=== PATIENT | female | born 1980 | race Caucasian/White ===

== ENCOUNTER 2017-03-12 13:17 | Outpatient (CLI) | payer BC ==
[2017-03-12 14:32] LABS: Hemoglobin 13.5 g/dL (12.0-16.0); Mean Corpuscular HGB CONC 33.9 g/dL (32.0-36.0); Mean Corpuscular Hemoglobin 31.4 pg (27.0-31.0); Mean Corpuscular Volume 92.6 fl (81.0-99.0); Mean Platelet Volume 7.3 fL (7.4-10.4); Platelet Count 163 thou/uL (130-400); Pregnancy Test - Urine (BHCG) Negative (Negative); Pregu Control Bar Appear? YES (CONTROL BAR); RBC Distribution Width 11.9 % (11.5-14.5); Red Blood Cell (RBC) Count 4.32 mill/uL (4.20-5.40); Specific Gravity 1.029 (1.002-1.036); White Blood Cell (WBC) Count 4.9 thou/uL (4.8-10.8)
[2017-03-12 14:33] LABS: Pregu Control Background? CLEAR/WHITE (CLR/WHITE)
== END 2017-03-12 13:18 | disposition home or self-care (01) ==
LOC: LABBT 13:17
PROVIDERS: ATTEND Student in an Organized Health Care Education/Training Program
DX: Z01.812 Encounter for preprocedural laboratory examination (principal); N92.1 Excessive and frequent menstruation with irregular cycle; R10.2 Pelvic and perineal pain; N83.209 Unspecified ovarian cyst, unspecified side; R93.8 Abnormal findings on diagnostic imaging of other specified body structures
CPT/HCPCS: 81025; 85027; 86850; 86900; 86901

== ENCOUNTER 2017-03-13 10:02 | Day surgery (SDC) | payer BC ==
[2017-03-12 13:48] VITALS: BMI 24.2
--- NOTE | 2017-03-13 00:55 | HP ---
DATE OF OPERATION: 03/13/2017 CHIEF COMPLAINT: Menometrorrhagia and pelvic pain. HISTORY OF PRESENT ILLNESS: This is a 36-year-old A2 with complaints of worsening menometrorrh agia over the last year. The patient has previously been on OCPs, however, has a diagnosis of methyl enetetrahydrofolate reductase homozygous and was instructed not to use estrogen containing cont rol. This was discovered after workup for her two miscarriages. She has also tried progesterone onl y methods and this did not improve the bleeding and cause significant pain. She reports her periods are every 2 weeks, lasting 7-9 days. She also reports increasing weight gain, distal extremity weakn ess, fatigue, and lower abdominal bloating. She has had blood work in the past with her PCP and with me, and that was negative. She also has persistent lower abdominal pain and is non-severe, however, this does bother her on a daily basis and with intercourse and this has been present for the last ye ar, has been slightly worsening since the patient is bleeding more frequently. CURRENT MEDICATIONS: Lotronex 1 mg p.o. daily. PAST MEDICAL HISTORY: IBS, MTHFR, homozygote, and headaches. GYNECOLOGIC HISTORY: Status post cryotherapy for abnormal Pap smears, normal Paps since no STDs. OBSTETRIC HISTORY: , vaginal deliveries, and 2 D and Cs for SAB. PAST SURGICAL HISTORY: Appendectomy, D and C x2. SOCIAL HISTORY: Negative x3. ALLERGIES: No known drug allergies. FAMILY HISTORY: Lung cancer in her father. REVIEW OF SYSTEMS: Negative except as noted in the HPI. PHYSICAL EXAMINATION: VITAL SIGNS: Blood pressure 110/70, pulse 91, respirations 18, weight 152. BMI is 23.8. GENERAL: In no acute distress. CARDIAC: Regular rate and rhythm. LUNGS: Clear to auscultation bilaterally. ABDOMEN: Soft, nontender, nondistended. EXTREMITIES: No edema, cyanosis, or clubbing. PELVIC: Deferred to OR. ASSESSMENT AND PLAN: This is a 36-year-old with worsening menometrorrhagia and pelvic pain. I n my office on 03/09/2017, she had an ultrasound that showed a uterus measuring 6.9 x 4.35 with an en dometrial thickness of 24 mm, possible bicornuate uterus. Right ovary was not visualized and left ov liam was visualized with a simple cyst measuring 2.0 x 1.63 cm with no free fluid. She was very tende r on the pelvic exam and secondary to finding of interval development of intrauterine endometrial thi ckening in the setting of recent menstrual period and hypermenorrhea. I have dispositioned the patie nt for further diagnosis for possible polyp or other mass with hysteroscopy, D and C while the patien t is under general anesthesia, she desired laparoscopy for evaluation of any pain causing disorders a nd possible cystectomy versus drainage of the persistent left ovarian cyst for the last year. Risks, benefits, and alternatives to surgery were discussed with the patient. She voiced understanding and wishes to proceed. She will follow up with me in 2 weeks' postoperative time.
[2017-03-13] MEDS ORDERED: CEFAZOLIN/Water 2 GM/20 ML SYRINGE ONE (10:29)
[2017-03-13] MEDS ORDERED: Promethazine HCl 25 MG/ML VIAL ONE (11:49)
[2017-03-13] MEDS ORDERED: HYDROmorphone 0.5 MG/0.5 ML SYRINGE ONE (11:49)
[2017-03-13] MEDS ORDERED: Fentanyl 100 MCG/2 ML VIAL ONE ×3 (11:49→14:39)
[2017-03-13] MEDS ORDERED: Bupivacaine/Epinephrine 0.25% 30 ML VIAL ONE (11:51)
[2017-03-13] MEDS ORDERED: Meperidine HCl/PF 25 MG/ML VIAL ONE (13:53)
[2017-03-13] MEDS ORDERED: Ketorolac Tromethamine 30 MG/ML VIAL ONE (14:22)
[2017-03-13] MEDS ORDERED: Lidocaine 1% PF 5 ML VIAL ONE (14:22)
[2017-03-13] MEDS ORDERED: Ondansetron HCl/PF 4 MG/2 ML Vial ONE ×2 (14:22→16:29)
[2017-03-13] MEDS ORDERED: Dexamethasone 20 MG/5 ML VIAL ONE (14:22)
[2017-03-13] MEDS ORDERED: PROPOFOL 200 MG/20 ML VIAL ONE (14:22)
[2017-03-13] MEDS ORDERED: Glycopyrrolate 0.2 MG/ML 5 ML SYRINGE ONE (14:22)
[2017-03-13] MEDS ORDERED: HYDROcodone/Acetaminophen 5/325 mg Tablet ONE ×2 (16:00→16:33)
--- NOTE | 2017-03-13 23:11 | OP ---
DATE OF OPERATION: 03/13/2017 PREOPERATIVE DIAGNOSES: 1. Pelvic pain. 2. Menometrorrhagia. 3. Endometrial thickening. POSTOPERATIVE DIAGNOSES: 1. Endometriosis. 2. Pelvic adhesive disease. 3. Endometrioma. 4. Hematosalpinx. 5. Menometrorrhagia. 6. Pelvic pain. PROCEDURES PERFORMED: Diagnostic laparoscopy, left salpingo-oophorectomy, lysis of adhesions, fulgur ation of endometriosis, hysteroscopy, dilation and curettage and Jaylyn endometrial ablation. ATTENDING SURGEON: Maame Kaplan M.D. [employer] SURGEON: None. ANESTHESIA: General endotracheal. ESTIMATED BLOOD LOSS: 15 mL. IV FLUIDS: 1100 crystalloid. URINE OUTPUT: 100 mL at the beginning of the case. COMPLICATIONS: None. PATHOLOGY: Endometrial curettings, left fallopian tube and ovary. DRAINS: None. FINDINGS: On intra-abdominal survey, the upper abdomen was within normal limits. The sigmoid colon appeared to have a significant amount of constipated fecal material as well as diverticulosis. There were sigmoid adhesions to the left fallopian tube and pelvic sidewall. The left fallopian tube and ovary were folded underneath the ovarian pedicle and adherent to the pelvic sidewall encasing no ovar nanda adhesions and blood was contained inside of these. The right ovary and fallopian tube were davian l appearing. There was scattered black and clear endometriotic implants on the left uterosacral liga ment, the posterior cul-de-sac and underlying the right ovarian fossa. On hysteroscopic exam, the ut erus sounded to 8 cm. The endometrium was very frayed and thickened and there were no discrete sabrina s and the fallopian tubal ostia were visualized bilaterally. Following Jaylyn ablation, there was a good chart at all uterine mercado. OPERATIVE TECHNIQUE: The patient was taken to the operating room where general anesthesia was obtain ed without difficulty. The patient was prepped and draped in a sterile fashion in dorsal lithotomy p osition. A speculum was placed in the vagina and a Hulka manipulator was placed into the uterus. Sp eculum was removed. The legs were placed in low lithotomy and attention was turned to the abdomen. A 5 mm infraumbilical incision was made and the Veress needle was passed into the abdomen noting an o pening pressure with 0 mmHg. Pneumoperitoneum was obtained without difficulty. The trocar and camer a were advanced into the abdomen under direct optically and steep Trendelenburg was obtained. A left lower quadrant 5 mm port was inserted under direct visualization. Manipulation of the pelvic struct ures noted the above findings. Initially, the adhesions of the bowel to the pelvic sidewall and the ovary were taken down to normalize the anatomy. At that time due to the extent of the adhesions and the swelling of the fallopian tube, the decision was made to proceed with left salpingo-oophorectomy. The LigaSure was used to initially identify the left side. The left ureter coursing through the pe lvis and the IP ligament was clamped well away from the ureter, cauterized and transected. This was taken down the pelvic sidewall sequentially with the LigaSure ensuring hemostasis, medially the utero -ovarian and fallopian tube were clamped across, cauterized and transected with the LigaSure and this was carried around to meet the incision from the other side. The ovary was completely removed. At that time, the 5 mm bag was called for. The 5 mm port was switched out for an 8 mm port and the bag was placed into the abdomen and the specimen was placed into the bag. This was delivered through the port without difficulty. Subsequently, the endometriotic implants over the left uterosacral posteri or cul-de-sac and right ovarian fossa were fulgurated with the [place] monopolar cautery. Irrigatio n was performed of the pelvis and hemostasis was noted. Pneumoperitoneum was released and instrument s were removed from the abdomen and attention was turned to the vagina where speculum was placed in t he vagina. The Hulka manipulator was removed. The cervix was grasped with a single tooth tenaculum. The uterus sounded to 8 cm, progressively dilated with Silvestre dilators. A 5 mm hysteroscope was asse mbled using normal saline as distention media and inserted into the uterus. The above findings were noted. Photo documentation was performed. The hysteroscope was then removed and a sharp curettage w as performed and removing a large amount of endometrial tissue, this was sent for pathology. The anna ypoid and cervical structures were also curetted and sent for pathology. The cervical length had pre viously been measured with the hysteroscope and was measured to be 3 cm. The Jaylyn was then connec neela and the cavity length of 5 cm was dialed in. The Jaylyn was then placed into the uterus and dep loyed. Cervical cath balloon was inflated and a cavity check was performed and passed. Ablation was then performed for 120 seconds and the Jaylyn was then decompressed and removed out of the uterus. Second look with the hysteroscope noted no perforations and a good chart at all uterine mercado. Hyst eroscope was removed. Fluid deficit for the case was 40 mL. All instruments were removed out of the vagina. The port sites were then closed with 4-0 Monocryl in a subcuticular fashion after infiltrat ing with 0.25% Marcaine with epinephrine and Dermabond was applied over these sites. The patient jose david erated the procedure well. Sponge, lap, and needle counts were correct x2. The patient was taken to recovery room in stable condition. Patient received Ancef 2 grams prior to the procedure.
== END 2017-03-13 17:10 | disposition home or self-care (01) ==
LOC: SDC 10:02
PROVIDERS: ATTEND Student in an Organized Health Care Education/Training Program
PROC: 0U5B8ZZ Destruction of Endometrium, Via Natural or Artificial Opening Endoscopic (ICD-10-PCS; principal; 2017-03-13)
PROC: 0UB64ZZ Excision of Left Fallopian Tube, Percutaneous Endoscopic Approach (ICD-10-PCS; principal; 2017-03-13)
PROC: 0UB14ZZ Excision of Left Ovary, Percutaneous Endoscopic Approach (ICD-10-PCS; principal; 2017-03-13)
PROC: 0U5 Female Reproductive System, Destruction (ICD-10-PCS; principal; 2017-03-13)
PROC: 0UDB7ZX Extraction of Endometrium, Via Natural or Artificial Opening, Diagnostic (ICD-10-PCS; principal; 2017-03-13)
PROC: 0U5 Female Reproductive System, Destruction (ICD-10-PCS; principal; 2017-03-13)
PROC: 0U598ZZ Destruction of Uterus, Via Natural or Artificial Opening Endoscopic (ICD-10-PCS; principal; 2017-03-13)
DX: N80.0 Endometriosis of uterus (principal); N73.6 Female pelvic peritoneal adhesions (postinfective); N83.6 Hematosalpinx; N92.1 Excessive and frequent menstruation with irregular cycle; K58.9 Irritable bowel syndrome, unspecified; E72.12 Methylenetetrahydrofolate reductase deficiency; Z79.899 Other long term (current) drug therapy; Z91.018 Allergy to other foods; Z90.49 Acquired absence of other specified parts of digestive tract; Z98.890 Other specified postprocedural states
CPT/HCPCS: 88305; 96374; J1100; J1170; J1885; J2001; J2175; J2405; J2550; J2704; J3010

== ENCOUNTER 2017-08-28 13:27 | Outpatient (CLI) | payer BC ==
--- NOTE | 2017-08-28 15:19 | RAD ---
SACROILIAC JOINTS 3 VIEWS: HISTORY: Arthritis. Sacroiliac pain. FINDINGS: Joint spaces are preserved. No aggressive osseous erosions or significant osteophytosis. Sacral ala e are intact. A transitional vertebra is apparent at the lumbosacral junction, with fusion of the left transverse p rocesses suspected and probable fusion of the far lateral margin of the right transverse processes. This can sometimes be a cause of low back pain at the sacroiliac area. POS: [facility]
== END 2017-08-28 13:28 | disposition home or self-care (01) ==
LOC: SCSRAD 13:27
PROVIDERS: ATTEND Internal Medicine Rheumatology
DX: M46.1 Sacroiliitis, not elsewhere classified (principal)
CPT/HCPCS: 72202; 72220

== ENCOUNTER 2018-03-30 23:45 | Emergency (ER) | payer BC ==
[2018-03-31] MEDS ORDERED: Metoclopramide HCl 10 MG/2 ML VIAL ONE (00:35)
[2018-03-31 01:05] LABS: #Basophils 0.1 thou/uL (0.0-0.2); #Lymphocytes 1.1 thou/uL (1.20-3.40); #Monocytes 0.8 thou/uL (0.11-0.59); #Neutrophils 13.3 thou/uL (1.40-6.50); %Basophils 0.4 % (0.0-1.0); %Eosinophils 0.3 % (0.0-10.0); %Lymphocytes 6.9 % (21.0-51.0); %Monocytes 4.9 % (0.0-10.0); %Neutrophils 87.4 % (42.0-75.0); Mean Corpuscular HGB CONC 33.7 g/dL (32.0-36.0); Mean Corpuscular Hemoglobin 30.2 pg (27.0-31.0); Mean Corpuscular Volume 89.8 fL (78.0-98.0); Platelet Count 186 thou/uL (130-400); RBC Distribution Width 12.1 % (11.5-14.5); Red Blood Cell (RBC) Count 4.97 mill/uL (4.20-5.40); White Blood Cell (WBC) Count 15.2 thou/uL (4.8-10.8)
[2018-03-31 01:09] LABS: BHCG - Serum Negative (NEGATIVE); Pregs Control Background? CLEAR/WHITE (CLR/WHITE); Pregs Control Bar Appear? YES (CONTROL BAR)
[2018-03-31 01:15] LABS: ALT (SGPT) 14 U/L (8-55); AST (SGOT) 17 U/L (5-34); Albumin 4.4 g/dL (3.5-5.0); Alkaline Phosphatase 69 U/L (40-150); Anion Gap 14 mmol/L (10-20); BUN (Urea Nitrogen) 16 mg/dL (7.0-18.7); Bilirubin, Total 0.7 mg/dL (0.2-1.2); Calc. Creatinine Clearance 0 mL/min (70-130); Calcium 8.9 mg/dL (7.8-10.44); Carbon Dioxide 21 mmol/L (22-29); Chloride 108 mmol/L (98-107); Estimated GFR-MDRD 76; Globulin 2.7 g/dL (2.4-3.5); Glucose 117 mg/dL (70-105); Magnesium 2.2 mg/dL (1.6-2.6); Potassium 3.6 mmol/L (3.5-5.1); Protein, Total 7.1 g/dL (6.0-8.3); Sodium 139 mmol/L (136-145)
== END 2018-03-31 01:56 | disposition home or self-care (01) ==
LOC: SCSER 23:45
DX: K52.9 Noninfective gastroenteritis and colitis, unspecified (principal)
CPT/HCPCS: 80053; 83735; 84703; 85025; 93005; 96365; J2765

== ENCOUNTER 2018-11-09 15:53 | Emergency (ER) | payer BC ==
[2018-11-09 16:32] LABS: #Eosinphils 0.1 thou/uL (0.0-0.7); #Lymphocytes 1.1 thou/uL (1.20-3.40); #Monocytes 0.3 thou/uL (0.11-0.59); #Neutrophils 3.6 thou/uL (1.40-6.50); %Basophils 0.6 % (0.0-1.0); %Eosinophils 1.3 % (0.0-10.0); %Lymphocytes 21.5 % (21.0-51.0); %Monocytes 6.6 % (0.0-10.0); Hemoglobin 13.6 g/dL (12.0-16.0); Mean Corpuscular HGB CONC 33.7 g/dL (32.0-36.0); Mean Corpuscular Hemoglobin 30.4 pg (27.0-31.0); Mean Corpuscular Volume 90.3 fL (78.0-98.0); Mean Platelet Volume 7.7 fL (7.4-10.4); Platelet Count 160 thou/uL (130-400); RBC Distribution Width 11.8 % (11.5-14.5); Red Blood Cell (RBC) Count 4.48 mill/uL (4.20-5.40); White Blood Cell (WBC) Count 5.1 thou/uL (4.8-10.8)
[2018-11-09] MEDS ORDERED: Ondansetron PF 4 MG/2 ML Vial ONE ×2 (16:33→17:30)
[2018-11-09 16:54] LABS: Bilirubin Small (Negative); Blood, Urine Negative (Negative); Clarity Clear (Clear); Glucose, Urine (Dipstick) Negative (Negative); Leukocyte Negative (Negative); Nitrite Negative (Negative); Pregnancy Test - Urine (BHCG) Negative (Negative); Pregu Control Background? CLEAR/WHITE (CLR/WHITE); Pregu Control Bar Appear? YES (CONTROL BAR); Protein, Urine (Dipstick) Trace mg/dL (Neg-Trace); Specific Gravity 1.025 (1.002-1.036); Urobilinogen 0.2 mg/dL (Less than 2)
[2018-11-09 16:59] LABS: BUN (Urea Nitrogen) 11 mg/dL (7.0-18.7); Calc. Creatinine Clearance 0 mL/min (70-130); Carbon Dioxide 24 mmol/L (22-29); Chloride 107 mmol/L (98-107); Potassium 3.6 mmol/L (3.5-5.1); Sodium 140 mmol/L (136-145)
[2018-11-09 17:00] LABS: ALT (SGPT) 15 U/L (8-55); AST (SGOT) 19 U/L (5-34); Albumin 4.1 g/dL (3.5-5.0); Alkaline Phosphatase 59 U/L (40-150); Bilirubin, Total 0.6 mg/dL (0.2-1.2); Calcium 8.6 mg/dL (7.8-10.44); Estimated GFR-MDRD 84; Globulin 2.6 g/dL (2.4-3.5); Glucose 97 mg/dL (70-105); Protein, Total 6.7 g/dL (6.0-8.3)
[2018-11-09 17:01] LABS: Lipase 12 U/L (8-78)
[2018-11-09 17:02] LABS: Anion Gap 13 mmol/L (10-20)
[2018-11-09] MEDS ORDERED: Ketorolac Tromethamine 30 MG/ML VIAL ONE (17:15)
[2018-11-09] MEDS ORDERED: Loperamide HCl 2 MG CAP ONE (18:08)
== END 2018-11-09 19:00 | disposition home or self-care (01) ==
LOC: SCSER 15:53
DX: R11.2 Nausea with vomiting, unspecified (principal); R19.7 Diarrhea, unspecified
CPT/HCPCS: 80053; 81003; 81025; 83605; 83690; 85025; 87045; 87046; 87427; 87449; 96361; 96374; 96375; 96376; J1885; J2405

== ENCOUNTER 2019-06-17 09:30 | Outpatient (CLI) | payer BC ==
--- NOTE | 2019-06-17 10:55 | CT ---
CT CHEST WITH CONTRAST: Date: 06/17/2019 INDICATION: Pneumonia. Correlation made to chest film of 06/07/2019 and a chest film of 05/23/2019. The right middle lobe infiltrate seen on 05/23/2019 showed clearing on the 06/07/2019 exam. FINDINGS: The lungs are well aerated. There is no evidence of parenchymal infiltrate seen today. No effusion. There is a small, 6.0 mm, nodule which is pleural based laterally in the right middle lobe. There is another small, 5.0 mm, nodule seen laterally near the pleural surface adjacent to the fissure but loc ated in the superior segment of the right lower lobe. The mediastinum is unremarkable. No evidence of adenopathy. There are nonspecific lymph nodes present . Nonspecific axillary lymph nodes. Images through upper abdomen unremarkable. Osseous structures unremarkable. IMPRESSION: 1. No evidence of inflammatory infiltrate. 2. There are two small nodules in the peripheral right lung. The largest measures up to 6.0 mm in th e sagittal projection. Recommend short-term follow-up. Recommend noncontrast CT chest in 6 months to confirm stability. POS: [facility]
== END 2019-06-17 09:31 | disposition home or self-care (01) ==
LOC: SCSCT 09:30
PROVIDERS: ATTEND Family Medicine
DX: J18.9 Pneumonia, unspecified organism (principal); R07.9 Chest pain, unspecified; R91.8 Other nonspecific abnormal finding of lung field
CPT/HCPCS: 71260

== ENCOUNTER 2019-12-02 14:39 | Outpatient (CLI) | payer BC ==
--- NOTE | 2019-12-02 16:32 | MRI ---
Exam: Brain MRI with and without contrast HISTORY: Patient has migraine headaches as a younger age. COMPARISON: None FINDINGS: Gradient echo sequence: No hemorrhage Calvarium: Appropriate T1 marrow signal intensity Midline brain parenchyma: Unremarkable Cerebrum:No mass or mass effect or midline shift. Brain volume, age-appropriate. Cortical benjamin-white matter differentiation is preserved. Minimal scattered T2 and FLAIR white matter hyperintensities predominantly in the left and right frontal subcortical white matter are nonspecific. Ventricles: No evidence of hydrocephalus. Sinuses and mastoid air cells: Adequate aeration Diffusion: Central arterial flow is maintained. Absent restricted diffusion. Postcontrast images: No pathologic enhancement of the brain parenchyma. IMPRESSION: 1. No pathologic enhancement the brain parenchyma 2. Absent restricted diffusion. No acute infarct 3. Scattered T2 and FLAIR hyperintensity involve the left and right frontal white matter, nonspecific . Differential considerations include changes from migraine headaches, demyelinating disease other than multiple sclerosis, Lyme disease or changes from vasculitis. Correlate clinically.
== END 2019-12-02 14:40 | disposition home or self-care (01) ==
LOC: SCSMRI 14:39
PROVIDERS: ATTEND Nurse Practitioner Acute Care
DX: G43.109 Migraine with aura, not intractable, without status migrainosus (principal); G93.89 Other specified disorders of brain
CPT/HCPCS: 70553